=== PATIENT | female | born 1995 | race African-American/Black ===

== ENCOUNTER 2022-01-13 23:12 | Inpatient (IN) | payer BC ==
[2022-01-14] MEDS ORDERED: Ampicillin 2 GM in Sodium Chloride 0.9% 100 ML IV ONE (00:02)
[2022-01-14] MEDS ORDERED: Lidocaine 1% 50 ML MDV INJECT PRN (00:02)
[2022-01-14] MEDS ORDERED: Misoprostol 200 MCG Tab PO PRN (00:02)
[2022-01-14] MEDS ORDERED: Carboprost Tromethamine 250 MCG/1 ML Amp IM PRN (00:02)
[2022-01-14] MEDS ORDERED: Tranexamic Acid 1,000 MG in Sodium Chloride 0.9% 100 ML IV PRN (00:02)
[2022-01-14] MEDS ORDERED: Methylergonovine 0.2 MG/1 ML Amp IM PRN (00:02)
[2022-01-14] MEDS ORDERED: Sodium Chloride 0.9% 10 ML Syringe FLUSH PRN (00:02)
[2022-01-14] MEDS ORDERED: Sodium Chloride 0.9% 2.5 ML Syringe FLUSH PRN (00:02)
[2022-01-14] MEDS ORDERED: Sodium Chloride 0.9% 20 ML SDV IV PRN (00:02)
[2022-01-14] MEDS ORDERED: Water For Irrigation,Sterile 1,000 ML Container IRR PRN (00:02)
[2022-01-14] MEDS ORDERED: Oxytocin/0.9 % Sodium Chloride 30 UNIT/500 ML BAG IV SCH (00:15)
[2022-01-14] MEDS: Lactated Ringers 1,000 ML IV SCH ×3 (00:28→11:52)
[2022-01-14] MEDS: Butorphanol 1 MG/ML SDV IVPUSH PRN ×3 (00:30→06:23)
[2022-01-14] MEDS: Ampicillin 1 GM in Sodium Chloride 0.9% 50 ML IV SCH ×5 (04:14→20:16)
[2022-01-14] MEDS ORDERED: ePHEDrine 50 MG/ML SDV IVPUSH PRN ×2 (09:38)
[2022-01-14] MEDS ORDERED: Ropivacaine HCl/PF 400 MG in Premix Bag 1 BAG EPIDUR SCH (09:45)
[2022-01-14] MEDS ORDERED: fentaNYL 100 MCG/2 ML SDV ONE (16:29)
[2022-01-14] MEDS ORDERED: Lidocaine 2% with EPINEPHrine 1:200,000 20 ML SDV ONE (16:30)
[2022-01-14] MEDS ORDERED: Acetaminophen 500 MG Tab PO PRN ×2 (19:15)
[2022-01-14] MEDS ORDERED: Ibuprofen 400 MG Tab PO PRN (19:15)
[2022-01-14] MEDS ORDERED: oxyCODONE 5 MG Tab PO PRN (19:15)
[2022-01-14] MEDS ORDERED: Benzocaine/Menthol 20%-0.5% Spray 78 GM Cannister TOP PRN (19:15)
[2022-01-14] MEDS ORDERED: Lanolin 100% Cream 7 GM Tube TOP PRN (19:15)
[2022-01-14] MEDS ORDERED: Docusate Sodium 100 MG Cap PO PRN (19:15)
[2022-01-14] MEDS ORDERED: Witch Hazel Medicated Pads 40/Jar TOP PRN (19:15)
[2022-01-14] MEDS ORDERED: Bisacodyl 10 MG Supp RECTAL PRN (19:15)
[2022-01-14] MEDS: Ibuprofen 800 MG Tab PO PRN (20:32)
[2022-01-15] MEDS: Ibuprofen 800 MG Tab PO PRN ×2 (04:43→16:21)
== END 2022-01-15 22:35 | disposition home or self-care (01) | DRG 560 ==
LOC: MW.OBCHECK 23:12 → MW.OB 23:13 → MW.OBCHECK 01-14 00:02 → MW.OB 01-14 00:02 → OBSVTOIN 01-14 19:08 → MW.OB 01-14 22:39
PROVIDERS: ADMIT Obstetrics & Gynecology Obstetrics; ATTEND Obstetrics & Gynecology Obstetrics
PROC: 10E0XZZ Delivery of Products of Conception, External Approach (ICD-10-PCS; principal; 2022-01-14)
PROC: 10907ZC Drainage of Amniotic Fluid, Therapeutic from Products of Conception, Via Natural or Artificial Opening (ICD-10-PCS; 2022-01-14)
PROC: 3E0R3BZ Introduction of Anesthetic Agent into Spinal Canal, Percutaneous Approach (ICD-10-PCS; 2022-01-14)
PROC: 00HU33Z Insertion of Infusion Device into Spinal Canal, Percutaneous Approach (ICD-10-PCS; 2022-01-14)
DX: O99.824 Streptococcus B carrier state complicating childbirth (principal); Z3A.40 40 weeks gestation of pregnancy; Z37.0 Single live birth; Z20.822 Contact with and (suspected) exposure to COVID-19; O77.0 Labor and delivery complicated by meconium in amniotic fluid
CPT/HCPCS: 36415; 59025; 59409; 85014; 85018; 85027; 86592; 86850; 86900; 86901; A9270-GY; J0131; J0290; J0595; J2370; J2590; J2795; J3010; J7120; U0002

== ENCOUNTER 2024-06-12 23:45 | Inpatient (IN) | payer OTHER ==
[2024-06-13] MEDS: Lactated Ringers 1,000 ML IV SCH (01:00)
[2024-06-13 01:04] LABS: HEMATOCRIT 35.7 % (37.0-47.0); HEMOGLOBIN 12.5 g/dL (12.0-16.0); MEAN CORPUSCULAR HEMOGLOBIN 30.5 pg (28.0-32.0); MEAN CORPUSCULAR VOLUME 87.1 fL (83.0-99.0); MEAN PLATELET VOLUME 12.1 fL (9.4-12.3); PLATELET COUNT,PLT 168 K/uL (150-400); WHITE BLOOD CELL COUNT,WBC 9.77 K/uL (3.9-11.3)
[2024-06-13] MEDS ORDERED: Sodium Chloride 0.9% 2.5 ML Syringe FLUSH PRN (01:35)
[2024-06-13] MEDS ORDERED: Sodium Chloride 0.9% 20 ML SDV IV PRN (01:35)
[2024-06-13] MEDS ORDERED: Ondansetron 4 MG/2 ML SDV IVPUSH PRN (01:35)
[2024-06-13] MEDS ORDERED: Lidocaine 1% 50 ML MDV INJECT PRN (01:35)
[2024-06-13] MEDS ORDERED: Carboprost Tromethamine 250 MCG/1 mL Vial IM PRN (01:35)
[2024-06-13] MEDS ORDERED: Sodium Chloride 0.9% 10 ML Syringe FLUSH PRN (01:35)
[2024-06-13] MEDS ORDERED: Methylergonovine 0.2 MG/1 ML Amp IM PRN (01:35)
[2024-06-13] MEDS ORDERED: Misoprostol 200 MCG Tab PO PRN (01:35)
[2024-06-13] MEDS ORDERED: Water For Irrigation,Sterile 1,000 ML Container IRR PRN (01:35)
[2024-06-13] MEDS ORDERED: Oxytocin/0.9 % Sodium Chloride 30 UNIT/500 ML BAG IV SCH (01:45)
[2024-06-13] MEDS ORDERED: Terbutaline 1 MG/ML SDV SUBCUT PRN (02:51)
[2024-06-13] MEDS: Misoprostol 25 MCG (1/4 of 100 MCG) Tab VAG PRN ×2 (03:05→07:20)
[2024-06-13] MEDS ORDERED: ePHEDrine 50 MG/ML SDV IVPUSH PRN (08:33)
[2024-06-13] MEDS ORDERED: dexmedeTOMIDine HCl 200 MCG/2 ML SDV EPIDUR SCH (08:45)
[2024-06-13] MEDS: Oxytocin/0.9 % Sodium Chloride 30 UNIT/500 ML BAG IV SCH (15:35)
[2024-06-13] MEDS: Butorphanol 2 MG/ML SDV IVPUSH PRN (16:52)
[2024-06-13] MEDS: Sodium Chloride 0.9% 1,000 ML IV SCH (17:39)
[2024-06-13] MEDS: Ropivacaine HCl/PF 400 MG in Premix Bag 1 BAG EPIDUR SCH (19:35)
[2024-06-13] MEDS: Phenylephrine HCl In 0.9% NaCl 1 MG/10 ML Syringe IVPUSH PRN (22:21)
[2024-06-13] MEDS ORDERED: Oxytocin 10 Units/1 ML SDV IM PRN (23:50)
[2024-06-13] MEDS ORDERED: diphenhydrAMINE 50 MG Cap PO PRN (23:50)
[2024-06-13] MEDS ORDERED: Docusate Sodium 100 MG Cap PO PRN (23:50)
[2024-06-13] MEDS ORDERED: Simethicone 80 MG Tab.Chew PO PRN (23:50)
[2024-06-14 00:32] LABS: PH,UMBILICAL ARTERIAL 7.136 (7.18-7.38); PH,UMBILICAL VENOUS 7.291 (7.25-7.45)
[2024-06-14] MEDS: Acetaminophen 1,000 MG in Premix Bag 1 BAG IV ONE (00:49)
[2024-06-14] MEDS: Ketorolac 30 MG/ML SDV IVPUSH ONE (00:54)
[2024-06-14] MEDS: Witch Hazel Medicated Pads 40/Jar TOP PRN (01:45)
[2024-06-14] MEDS: Benzocaine/Menthol 20%-0.5% Spray 78 GM Cannister TOP PRN (01:46)
[2024-06-14] MEDS: Lanolin 100% Cream 7 GM Tube TOP PRN (01:46)
[2024-06-14 06:28] LABS: BASOPHILS ABSOLUTE AUTO 0.03 K/uL (0.00-0.20); BASOPHILS PERCENT AUTO 0.2 % (0.0-1.0); EOSINOPHILS ABSOLUTE AUTO 0.01 K/uL (0.00-0.45); EOSINOPHILS PERCENT AUTO 0.1 % (0.0-6.0); HEMATOCRIT 35.6 % (37.0-47.0); HEMOGLOBIN 12.6 g/dL (12.0-16.0); IMMATURE GRAN ABSOLUTE AUTO 0.04 K/uL (0.00-0.05); IMMATURE GRAN PERCENT AUTO 0.3 % (0.0-0.4); LYMPHOCYTES ABSOLUTE AUTO 1.94 K/uL (1.00-4.80); LYMPHOCYTES PERCENT AUTO 12.4 % (24.0-44.0); MEAN CORPUSCULAR HEMOGLOBIN 30.7 pg (28.0-32.0); MEAN CORPUSCULAR HGB CONC 35.4 g/dL (32.0-36.0); MEAN CORPUSCULAR VOLUME 86.6 fL (83.0-99.0); MEAN PLATELET VOLUME 10.5 fL (9.4-12.3); MONOCYTES ABSOLUTE AUTO 1.21 K/uL (0.00-0.80); MONOCYTES PERCENT AUTO 7.8 % (0.0-8.0); NEUTROPHILS ABSOLUTE AUTO 12.36 K/uL (1.80-7.70); NEUTROPHILS PERCENT AUTO 79.2 % (41.0-71.0); PLATELET COUNT,PLT 164 K/uL (150-400); RED BLOOD CELL COUNT 4.11 M/uL (4.10-5.30); WHITE BLOOD CELL COUNT,WBC 15.59 K/uL (3.9-11.3)
[2024-06-14] MEDS: Ibuprofen 800 MG Tab PO PRN (10:34)
[2024-06-14] MEDS: Acetaminophen 500 MG Tab PO PRN (15:56)
== END 2024-06-15 02:50 | disposition home or self-care (01) | DRG 806 ==
LOC: MW.OBCHECK 23:45 → UNDOADMOB 23:46 → MW.OB 23:46 → OBSVTOIN 06-13 23:33 → MW.OB 06-14 02:22
PROVIDERS: ADMIT Obstetrics & Gynecology; ATTEND Obstetrics & Gynecology
PROC: 10E0XZZ Delivery of Products of Conception, External Approach (ICD-10-PCS; principal; 2024-06-13)
PROC: 3E0R3BZ Introduction of Anesthetic Agent into Spinal Canal, Percutaneous Approach (ICD-10-PCS; 2024-06-13)
PROC: 00HU33Z Insertion of Infusion Device into Spinal Canal, Percutaneous Approach (ICD-10-PCS; 2024-06-13)
DX: O48.0 Post-term pregnancy (principal); Z3A.41 41 weeks gestation of pregnancy; Z37.0 Single live birth; O98.42 Viral hepatitis complicating childbirth; O99.214 Obesity complicating childbirth; B18.1 Chronic viral hepatitis B without delta-agent
CPT/HCPCS: 36415; 51702; 59025; 59409; 76805; 76805-26; 82803; 85025; 85027; 86592; 86850; 86900; 86901; A9270-GY; J0131; J0595; J1885; J2371; J2590; J2795; J7030; J7120